=== PATIENT | female | born 1960 | race Hispanic/Latino ===

== ENCOUNTER 2019-01-30 16:49 | Emergency (ER) | payer OTHER, BC ==
[~2019-01-30] VITALS: Ht 149.9 cm; Wt 90.0 kg
[2019-01-30] MEDS ORDERED: SYNTHROID25 MCG PO (19:06)
[2019-01-30] MEDS ORDERED: PHENTERMINE15 MG PO (19:07)
[2019-01-30] MEDS ORDERED: VITAMIN D50000 UNIT PO (19:08)
[2019-01-30] MEDS ORDERED: LORTAB 1010 MG PO (19:36)
[2019-01-30] MEDS ORDERED: FLEXERIL PO (19:36)
[2019-01-30 19:43] VITALS: BP 138/80
== END 2019-01-30 19:43 | disposition home or self-care (01) | DRG 552 ==
LOC: ED 16:49
DX: S23.3XXA Sprain of ligaments of thoracic spine, initial encounter (principal); V49.50XA Passenger injured in collision with unspecified motor vehicles in traffic accident, initial encounter